=== PATIENT | female | born 1955 ===

== ENCOUNTER 2022-12-17 16:41 | Emergency (ER) | payer MEDICARE, MEDICAID ==
[~2022-12-17] VITALS: Ht 160 cm; Wt 45.5 kg
[2022-12-17 16:51] VITALS: BP 135/75
[2022-12-17] MEDS ORDERED: BENZ-38 PO (17:27)
[2022-12-17] MEDS ORDERED: ALBU8HFA PO (17:27)
== END 2022-12-17 20:17 | disposition left against medical advice (07) ==
LOC: ER 16:43
DX: R06.02 Shortness of breath (principal); R10.9 Unspecified abdominal pain; R19.7 Diarrhea, unspecified; I10 Essential (primary) hypertension; J45.909 Unspecified asthma, uncomplicated; J44.9 Chronic obstructive pulmonary disease, unspecified; F17.200 Nicotine dependence, unspecified, uncomplicated
CPT/HCPCS: 99283